=== PATIENT | female | born 1960 | race Caucasian/White ===

== ENCOUNTER → 2020-03-23 08:48 | Outpatient (CLI) | payer OTHER, SELFPAY ==
--- NOTE | 2020-03-23 | DI.RAD.S_ITS ---
PROCEDURE: FL BARIUM SWALLOW W SPEECH INDICATIONS: Dysphagia, unspecified COMPARISON: None. TECHNIQUE: Examination was conducted in conjunction with speech pathology per standard protocol. In the lateral projection, filming was performed of the patient swallowing. AP projection filming may also be performed with patient swallowing. COMPARISON: FINDINGS: Function: The oral preparatory phase appears normal, with proper containment. The subsequent oral propulsive phase, pharyngeal phase, and esophageal phase of swallowing also appear normal with all proffered substances. No laryngotracheal penetration or aspiration. No pathologic vallecular pooling. Morphology: No cricopharyngeal bar is identified. No cervical esophageal webs. No Zenker's diverticulum. No strictures. IMPRESSION: No there injury tracheal penetration or aspiration. Please see separate speech pathologist's report for detail. Dictated by: Deon Brito M.D. on 03/23/2020 at 10:09 Approved by: Deon Brito M.D. on 03/23/2020 at 10:09
--- NOTE | 2020-03-23 14:21 | ST.SWALLOW ---
Visit Care Team Role Provider Type Karolyn Quigley PA-C Attending Provider Non-Staff Primary Care Provider Referring Provider Specialty: Nursing [address]: [address] [place] [address], [id number] Email: Modified Barium Swallow Study PULLER OVER Modified Barium Swallow Study Start: 03/23/20 13:21 Freq: Status: Active Protocol: Document 03/23/20 13:23 LNK (Rec: 03/23/20 14:21 LNK [id number]) Modified Barium Swallow Study Total Time Visit Start Time 09:30 Visit Stop Time 10:00 Total Visit Minutes 30 Referral Referring Physician Karolyn Mensah PA-C Reason for Referral dysphagia Setting Setting Outpatient Care Patient Information Identification Type Name,Date of Patient History Pt was seen for a Modified Barium swallow study secondary to c/o pain with swallowing liquids and solids. Pt described the pain and difficulty as foods stuck in her throat (pointing to her neck near the sternal notch. She reported that her swallow problems began about 1 year ago and are continuing to occur. Pt denied history of GERD, injury or surgery in the neck area, or any diagnoses that may be related. She stated that she does not choke when swallowing. Subjective Observations pt was seated in the fluoroscopy chair. Instructions and procedures were described to the pt. She indicated that she understood and agreed to proceed. Patient Positioning Position View Lat-A/P Imaging Lateral View Textures Administered Trials Presented Thin Liquid via Spoon,Thin Liquid via Cup,Pudding Thick Liquid via Spoon,Regular Textures Oral Phase Source: MBSIMP (TM) (C) Bolus Specific Scoring Grid Lip Closure WFL Tongue Control During Bolus Hold WFL Bolus Prep/Mastication WFL Bolus Transport/Lingual Motion WFL A/P Lingual Propulsion Delay No Oral Residue WFL Residue Clearing WFL Nasal Regurgitation No Additional Oral Phase Observations OME indicated structures anf function to be WFL. Dentition was natural in good hygiene. Oral phase of swallow appeared to be WFL Pharyngeal Phase Source: MBSIMP (TM) (C) Bolus Specific Scoring Grid Delayed Initiation of Pharyngeal Swallow Yes: Premature spillage to the pyriform sinuses Soft Palate Elevation WFL Tongue Base Strength/Range of Motion WFL Residue Along the Tongue Base No Clearance of Residue Along Tongue Base No Impairment (WNL) Laryngeal Elevation Mild Impairment Anterior Hyoid Movement Mild Impairment Epiglottic Range of Motion WFL Vallecular Residue No Clearance of Vallecular Residue No Impairment (WNL) Laryngeal Vestibular Closure No Impairment (WNL) Pharyngeal Stripping Wave No Impairment (WNL) Posterior Pharyngeal Wall Residue No Upper Esophageal Sphincter Opening WFL Residue in the Pyriform Sinuses No Clearance of Residue in the Pyriform No Impairment (WNL) Sinuses Additional Pharyngeal Phase Observations Pt presented with pharyngeal phase of swallowing WFL. Hyolaryngeal elevation and forward movement of the hyoid appeared to be less than expected; however there was minimal to no impact on epiglottal inversion or laryngeal seal. Premature spillage to the pyriform sinuses observed, yet there was minimal to no residue within the valeculla or pyriform sinuses following swallows. No laryngeal penetration or aspiration was observed. A source of pt's reported pain with swallowing and sensation of globus was not observed. A/P View Textures Administered Trials Presented Thin Liquid via Cup A/P View Observations Pharyngeal Contraction WFL Esophageal Function Narrowing Additional Observations A scan of the esophageal phase of the swallow indicated good flow from the UES. There may have been narrowing of the esophagus in the lower third; however one could not r/o the effect of body position on the esophagus. The esophagus appeared to empty into the stomach in a timely manner. Clinical Impressions Dysphagia Type No oral or pharyngeal phase dysphagia Patient Appropriate for Therapy No Recommendations Treatment Plan Additional Therapy Recommendations Because pt describes pain when she swallows, a GI consult is recommended. Recommended Referrals GI Consult
== END ==
PROVIDERS: PCP Physician Assistant; Referring Provider Physician Assistant; Visit Provider Physician Assistant
DX: R13.10 Dysphagia, unspecified (principal)
CPT/HCPCS: 74230; 92611